=== PATIENT | female | born 1960 | race African-American/Black ===

== ENCOUNTER 2019-02-20 06:45 | Inpatient (IN) | payer OTHER ==
[~2019-02-20] VITALS: Ht 160 cm; Wt 61.7 kg
[2019-02-20] VITALS (25 sets, daily range): BP systolic 131–193; BP diastolic 59–98; PULSE 60–106; RESP 16–33; Ht 160 cm; Wt 61.7 kg
[~2019-02-20 06:45] MED LIST: LETR2.5T PO
[2019-02-20] MEDS ORDERED: SOD CHLORIDE 0.9% 1,000 ML IV SCH (07:00)
[2019-02-20] MEDS ORDERED: VANCOMYCIN HCL 2 GM in SOD CHLORIDE 0.9% 500 ML IVPB ONE (07:00)
[2019-02-20] MEDS ORDERED: METOPROLOL 5 MG INJ ONE (10:00)
[2019-02-20] MEDS ORDERED: ACETAMINOPHEN 500 MG TAB PO ONE (10:00)
[2019-02-20] MEDS ORDERED: FENTAnyl 50 MCG/ML VIAL ONE ×2 (10:01→12:34)
[2019-02-20] MEDS ORDERED: ONDANSETRON 4 MG INJ ONE (10:01)
[2019-02-20] MEDS ORDERED: LIDOCAINE 2% (SDV) 5 ML INJ ONE (10:01)
[2019-02-20] MEDS ORDERED: ROCURONIUM 50 MG INJ ONE (10:01)
[2019-02-20] MEDS ORDERED: FAMOTIDINE 20 MG INJ ONE (10:01)
[2019-02-20] MEDS ORDERED: PROPOFOL 40 ML ONE (10:01)
[2019-02-20] MEDS ORDERED: MIDAZOLAM 1 MG/ML 2 ML INJ ONE (10:01)
[2019-02-20] MEDS ORDERED: PROVENTIL HFA 6.7GM INHALER ONE (12:13)
[2019-02-20] MEDS ORDERED: FENTAnyl 50 MCG/ML VIAL IV PRN ×2 (12:30)
[2019-02-20] MEDS ORDERED: DIPHENHYDRAMINE 50 MG INJ IV PRN (12:30)
[2019-02-20] MEDS ORDERED: hydrALAzine 20 MG INJ IV PRN ×2 (12:30→17:30)
[2019-02-20] MEDS ORDERED: MEPERIDINE 25 MG INJ IV PRN (12:30)
[2019-02-20] MEDS ORDERED: OXYCODONE/ACETAMINOPHEN (5/325) TAB PO PRN ×2 (12:30)
[2019-02-20] MEDS ORDERED: morphine 2 MG INJ IV PRN ×2 (12:30)
[2019-02-20] MEDS ORDERED: EPHEDrine 25 MG/5 ML SYG IV PRN (12:30)
[2019-02-20] MEDS ORDERED: ONDANSETRON 4 MG INJ IV PRN ×2 (12:30→15:00)
[2019-02-20] MEDS ORDERED: HYDROmorphONE 1 MG/5 ML IV SYRINGE IV PRN ×3 (12:30)
[2019-02-20] MEDS ORDERED: ALBUTEROL 0.083% (NEB) 2.5 MG/3 ML AMP HHN PRN (12:30)
[2019-02-20] MEDS ORDERED: LABETALOL HCL 20MG INJ IV PRN (12:30)
[2019-02-20] MEDS ORDERED: MAGNESIUM SULFATE 1 GM/D5W 100 ML ONE (12:44)
[2019-02-20] MEDS ORDERED: hydrALAzine 20 MG INJ ONE (13:37)
[2019-02-20] MEDS ORDERED: KETAMINE (50 MG/ML) 10 ML VIAL ONE (13:53)
[2019-02-20] MEDS ORDERED: D5W-0.45 NACL + KCL 20 MEQ 1,000 ML IV SCH (14:38)
[2019-02-20] MEDS ORDERED: HYDROCODONE/APAP (5/325) TAB PO PRN (15:00)
[2019-02-20] MEDS ORDERED: DIPHENHYDRAMINE 25 MG CAP PO PRN (15:00)
[2019-02-20] MEDS ORDERED: ACETAMINOPHEN 325 MG TAB PO PRN (15:00)
[2019-02-20] MEDS ORDERED: GLUCAGON 1 MG INJ IM PRN (17:30)
[2019-02-20] MEDS ORDERED: GLUCOSE GEL 15 GRAM TUBE BUCCAL PRN (17:30)
[2019-02-20] MEDS ORDERED: GLUCOSE GEL 15 GRAM TUBE PO PRN ×2 (17:30)
[2019-02-20] MEDS ORDERED: DEXTROSE 50% 50 ML SYRINGE IV PRN ×2 (17:30)
[2019-02-20] MEDS: INSULIN ASPART [NOVOLOG] 3 ML PEN SC SCH ×2 (18:00→20:08)
[2019-02-20] MEDS: SOD CHLORIDE 0.45% 1,000 ML IV SCH (18:17)
[2019-02-20] MEDS: HYDROmorphONE 1 MG/ML SYG SC PRN (23:44)
[2019-02-21 01:39] VITALS: BP 155/68; PULSE 76; RESP 18
[2019-02-21] MEDS: SOD CHLORIDE 0.45% 1,000 ML IV SCH ×2 (06:20→21:06)
[2019-02-21 07:45] VITALS: BP 143/64; PULSE 75; RESP 18
[2019-02-21] MEDS: INSULIN ASPART [NOVOLOG] 3 ML PEN SC SCH ×4 (08:00→21:00)
[2019-02-21] MEDS: HYDROmorphONE 1 MG/ML SYG SC PRN (11:18)
[2019-02-21 14:17] VITALS: BP 151/65; PULSE 75; RESP 18
[2019-02-21] MEDS: POLYETHYLENE GLYCOL 17 GM PACKET PO SCH (14:48)
[2019-02-21] MEDS: DOCUSATE SODIUM 100 MG CAP PO SCH (14:48)
[2019-02-21] MEDS ORDERED: HYDROmorphONE 1 MG/ML SYG IV PRN (15:00)
[2019-02-21 20:09] VITALS: BP 154/67; PULSE 88; RESP 19
[2019-02-22 01:33] VITALS: BP 170/75; PULSE 81; RESP 19
[2019-02-22 02:40] VITALS: BP 166/73
[2019-02-22] MEDS: INSULIN ASPART [NOVOLOG] 3 ML PEN SC SCH ×2 (08:00→12:00)
[2019-02-22 08:14] VITALS: BP 140/64; PULSE 100; RESP 18
[2019-02-22] MEDS: DOCUSATE SODIUM 100 MG CAP PO SCH (09:02)
[2019-02-22] MEDS: POLYETHYLENE GLYCOL 17 GM PACKET PO SCH (09:02)
[2019-02-22] MEDS: SOD CHLORIDE 0.45% 1,000 ML IV SCH (10:00)
[2019-02-22 14:20] VITALS: BP 128/60; PULSE 91; RESP 18
== END 2019-02-22 15:15 | disposition home or self-care (01) | DRG 941 ==
LOC: REC 06:45 → EDSTATUS 13:00 → 2NE 16:10
PROVIDERS: ADMIT Surgery; ATTEND Surgery
PROC: 07B60ZZ Excision of Left Axillary Lymphatic, Open Approach (ICD-10-PCS; 2019-02-20)
PROC: 0HTV0ZZ Resection of Bilateral Breast, Open Approach (ICD-10-PCS; principal; 2019-02-20 12:00)
DX: G89.18 Other acute postprocedural pain (principal); C50.911 Malignant neoplasm of unspecified site of right female breast; C50.912 Malignant neoplasm of unspecified site of left female breast; I10 Essential (primary) hypertension; E11.9 Type 2 diabetes mellitus without complications; Z15.01 Genetic susceptibility to malignant neoplasm of breast
CPT/HCPCS: 80048; 82962; 85025; 88309; 94664; J0360; J1170; J1815; J2175; J2250; J2405; J3010; J3370; J3475; J7030; J7040